=== PATIENT | female | born 1960 | race Caucasian/White ===

== ENCOUNTER → 2016-07-31 | Outpatient (CLI) | payer OTHER ==
[~2016-07-31] MED LIST: ABILIFY10 MG PO; ALBUTEROL17 GM INH; AMBIEN PO; AMBIEN10 MG PO; ATENOLOL; ATIVAN2 M1 PO; BACTRIM DS TABL1 TAB PO; BENADRYL; BENADRYL25 M1 PO; BUPROPION XL300 MG PO; COZAAR PO; CYMBALTA PO; DICLOFENAC PO; DILAUDID2 MG PO; DILAUDID4 MG PO; EFFEXOR XR PO; EFFEXOR-XR150 MG; EFFEXOR75 M1 PO; EFFEXOR75 MG PO; EPIPEN0.3 MG/0.1 IM; EPIPEN0.3 MG/0.1 INJ; ESTRACE2 M1 PO; FAMOTIDINE; FAMOTIDINE PO; FLEXERIL PO; HYDROCHLOROTHIA25 MG PO; HYDROCODON-ACE1 EAC1 PO; IBUPROFEN800 MG PO; KEFLEX500 M1 PO; KLONOPIN PO; LISINOPRIL PO; LOSARTAN POTASS50 MG PO; MEDROL PO; MEDROL4 MG/DOSE- PO; OXYCODONE-APAP1 EAC5 PO; OXYCONTIN20 MG PO; PANTOPRAZOLE SO40 MG PO; PERCOCET 10/31 UDTA1 PO; PREDNISONE; PREDNISONE PO; PREMARIN PO; PRILOSEC20 M1 PO; PYRIDIUM PO; SKELAXIN PO; SYNTHROID PO; SYNTHROID75 MCG PO; TEGRETOL PO; TYLENOL EXTRA500 M1 PO; VITAMIN B-125000 MCG PO; VITAMIN D50000 UNIT PO; WELLBUTRIN XL PO; ZANAFLEX4 M1 PO; ZANTAC; ZOLOFT100 MG PO; [UNRECOGNIZED DRUG - REMARK]
--- NOTE | ~2016-07-31 | XA30 ---
[facility] A Service of [facility] & [facility] RADIOLOGY TEXT RESULTS PATIENT: MARCUS MARRERO [facility] [birth year] UNIT #: [id number] AGE: [address]: Jericho De Santiago MD SEX: F ORDER DR: [id number] [facility] [address] [place], [place] [address] [id number] O MR#: [id number] Acc #: [id number] NAME: MARCUS MARRERO : 1960 SEX: F STUDY DATE/TIME: 07/31/2016 10:51 UNIT: [facility] ROOM: STUDY DESCRIPTION: XA Arthrocentesis Major Joint Attending Physician: Jericho De Santiago M.D. Referring Physician: Jericho De Santiago M.D. Ordering Physician: Jericho De Santiago M.D. Primary Care Physician: Nae Lauren MEDICAL IMAGING REPORT This report is preliminary unless electronic signature is present EXAM Right hip arthrocentesis and therapeutic injection with fluoroscopic guidance. DATE OF STUDY: 07/31/16 HISTORY Right hip pain. PROCEDURE: Informed consent was obtained. Fluoroscopic guidance was used to select a skin site which was then sterilely prepped and draped and locally anesthetized. A 22 gauge spinal needle was advanced into the joint, intraarticular needle tip positioned and confirmed with contrast injection, followed by injection of 40 mg if Depo-Medrol and 2 mL of .5% Marcaine. There were no complications and the patient tolerated the procedure well. IMPRESSION 1. Successful right hip arthrocentesis and injection with Depo-Medrol and Marcaine with fluoroscopic guidance, preprocedure pain level 6 of 10. Postprocedure pain level 1 of 10. 2. Fluoro time 0.4 minutes, single spot image obtained. Dictated by... Terrence Mcdonald M.D. THIS IS AN ELECTRONICALLY VERIFIED REPORT Terrence Mcdonald M.D. at 08/04/2016 3:57 PM TEV/judit [facility] A Service of [facility] & [facility] RADIOLOGY TEXT RESULTS PATIENT: MARCUS MARRERO LOCATION: [facility] #: [id number] : [birth year] UNIT #: [id number] AGE: [address]: Jericho De Santiago MD SEX: F ORDER DR: TD: 08/03/2016 12:42 JOB #: [id number] MEDICAL IMAGING REPORT Page 1 of 1 COPY
== END | disposition home or self-care (01) ==
LOC: CIVR 10:30
PROC: 3E0U33Z Introduction of Anti-inflammatory into Joints, Percutaneous Approach (ICD-10-PCS; principal; 2016-07-31)
PROC: 3E0U3BZ Introduction of Anesthetic Agent into Joints, Percutaneous Approach (ICD-10-PCS; 2016-07-31)
DX: M16.11 Unilateral primary osteoarthritis, right hip (principal)
CPT/HCPCS: 77002; J1030; Q9966

== ENCOUNTER → 2016-12-10 | Day surgery (SDC) | payer OTHER ==
--- NOTE | ~2016-12-10 | OR ---
Unit #: [id number] #: [id number] Patient: MARCUS MARRERO [id number] [address] [place], [place] [address] [id number] O MR#: [id number] NAME: MARCUS MARRERO ROOM: Date of Procedure: 12/10/2016 Admission Date: 12/10/2016 Surgeon: Kvng Malik M.D. : 1960 Attending Physician: Kvng Malik M.D. Primary Care Physician: Generic Doctor Not In System OPERATIVE REPORT PREOPERATIVE DIAGNOSES Back pain, radiculopathy, herniated nucleus pulposus, degenerative disk disease. POSTOPERATIVE DIAGNOSES Back pain, radiculopathy, herniated nucleus pulposus, degenerative disk disease. PROCEDURE PERFORMED Lumbar epidural steroid injection with intravenous sedation and fluoroscopic guidance for needle localization. INDICATIONS FOR PROCEDURE The patient is a 55-year-old female with return of back and right greater than left lower extremity pain. She has a small right-sided disk extrusion at L5-S1 level. The patient had right L5 nerve root, she was last treated in 08/2015 with epidural steroids and did quite well. She was managed medically. She also has significant cervical problems. She had significant cervical posterior decompression fusion. Based on history of back and radiculopathy, plan is to repeat an epidural steroid injection today. Risks and benefits of all reviewed. DESCRIPTION OF PROCEDURE The patient was placed in the seated position. Standard monitors were applied. 4 mg of Versed were given for sedation and anxiolysis, which were adequate. Vital signs remained stable. Sterile prep and drape then of the lumbar area was performed. The skin then at the L4-L5 level was localized with 1% lidocaine. An 18-gauge Tilttead needle was then advanced via loss of resistance technique fluoroscopic guidance in toward the epidural space. After confirming proper positioning with fluoroscopy and radiographic contrast, 80 mg of Depo-Medrol and 4 mL of 0.125% bupivacaine were deposited. The patient tolerated the procedure otherwise well and was discharged to the recovery room in stable condition. Dictated by... Vinny Sanchez/jolie TD: 12/10/2016 12:23 JOB #: [id number] CC: [facility] Unit #: [id number] #: [id number] Patient: MARCUS MARRERO OPERATIVE REPORT Page 1 of 1 X Kvng Malik MD X PROCEDURE OPERATIVE NOTE
== END | disposition home or self-care (01) ==
LOC: CCSC 07:42
DX: M51.17 Intervertebral disc disorders with radiculopathy, lumbosacral region (principal); I10 Essential (primary) hypertension; F32.9 Major depressive disorder, single episode, unspecified; Z88.0 Allergy status to penicillin; Z88.1 Allergy status to other antibiotic agents; Z79.1 Long term (current) use of non-steroidal anti-inflammatories (NSAID); Z79.899 Other long term (current) drug therapy; Z98.1 Arthrodesis status
CPT/HCPCS: J1040; J2250